=== PATIENT | male | born 1955 | race Asian ===

== ENCOUNTER 2018-09-14 00:22 | Inpatient (IN) | payer MEDICAID ==
[~2018-09-14] VITALS: Ht 165.1 cm; Wt 58.1 kg
--- NOTE | 2018-09-14 00:45 | NUR ---
PATIENT BIB RA FROM HOME FOR C/O CP AFTER HIS AICD ON LEFT CHEST WALL SHOCK HIM TWICE PRIOR TO CALL 911. PATIENT SHORTLY C/O NON RADIATING CP AFTER BEING SHOCK. WHILE PATIENT WAS BEING TRANSPORTED TO ER BY RESC[facility], PATIENT WAS SHOCK BY HIS AICD DUE RAPID AFIB WITH RVR. PATIENT UPON ARRIVAL A/OX3,DENIES SOB. ST WITH RATE OF 112 ON MONITOR. HAS PERMA CATH ON LEFT CHEST WALL. HAD 300ML OF NS ON THE FIELD DUE TO BP 90/60 ON THE FIELD.
[2018-09-14 01:16] LABS: CREATININE 3.4 mg/dL (0.6-1.3); POTASSIUM 4.9 mmol/L (3.5-5.1)
[2018-09-14 01:17] LABS: BASOPHILS # (AUTO) 0.1 K/uL (0.0-8.0); BASOPHILS % (AUTO) 1.7 % (0.0-2.0); EOSINOPHILS # (AUTO) 0.3 K/uL (0.0-0.7); EOSINOPHILS % (AUTO) 5.1 % (0.0-7.0); HEMATOCRIT 28.8 % (36.7-47.1); HEMOGLOBIN 9.2 g/dL (12.5-16.3); LYMPHOCYTES # (AUTO) 1.4 K/uL (20.0-40.0); LYMPHOCYTES % (AUTO) 24.4 % (20.5-51.5); MEAN CORPUSCULAR HEMOGLOBIN 28.7 uug (23.8-33.4); MEAN CORPUSCULAR HGB CONC 32 g/dL (32.5-36.3); MONOCYTES # (AUTO) 0.7 K/uL (2.0-10.0); MONOCYTES % (AUTO) 11.6 % (0.0-11.0); NEUTROPHILS # (AUTO) 3.3 K/uL (1.8-8.9); NEUTROPHILS % (AUTO) 57.2 % (38.5-71.5); PLATELET COUNT (AUTO) 128 K/uL (152-348); WHITE BLOOD COUNT (AUTO) 5.7 K/uL (3.6-10.2)
[2018-09-14 01:29] LABS: BILIRUBIN,DIRECT 0.4 mg/dL (0.0-0.2); BILIRUBIN,TOTAL 1.9 mg/dL (0.2-1.0)
[2018-09-14] MEDS ORDERED: ASPIRIN 325 MG TABLET ONE (01:42)
[2018-09-14] MEDS ORDERED: ASPIRIN 325 MG TABLET PO ONE (01:45)
[2018-09-14] MEDS ORDERED: MAGNESIUM SULFATE 1 GM in IV DEXTROSE 5% 50 ML IV ONE (01:45)
--- NOTE | 2018-09-14 01:45 | NUR ---
PATIENT SLEEPING ON GURNY WITH NO DISTRESS NOTED
[2018-09-14] MEDS ORDERED: MAGNESIUM SULFATE/D5W 100 ML ONE (01:51)
[2018-09-14] MEDS ORDERED: MAGNESIUM HYDROXIDE 30 ML LIQUID UDC PO PRN (02:15)
[2018-09-14] MEDS ORDERED: ACETAMINOPHEN 325 MG TABLET PO PRN (02:15)
[2018-09-14] MEDS ORDERED: Z GUARD REMEDY PASTE 57 GM TUBE TOP PRN (02:15)
[2018-09-14] MEDS ORDERED: ONDANSETRON 4 MG/2 ML VIAL IV PRN (02:15)
--- NOTE | 2018-09-14 02:55 | NUR ---
TRANSFERED TO 3RD FLOOR TELE VIA [facility]DR[facility]
--- NOTE | 2018-09-14 03:00 | NUR ---
received patient via [facility]. a/o x4. no signs of acute distress at this time. v/s stable with exception of HR tachycardic. safety and comfort measures provided. ID band on. IV patent. belonging list completed. will continue and complete admissions process once patient is rested per patient request.
[2018-09-14 03:11] VITALS: BP 102/64
[2018-09-14] MEDS: HYDROCODONE/APAP 5-325MG TABLET PO PRN (03:55)
--- NOTE | 2018-09-14 03:55 | NUR ---
c/o of pain. administered [place]. tolerated well.
[2018-09-14 04:00] VITALS: BP 98/63
[2018-09-14] MEDS ORDERED: MAGNESIUM SULFATE/D5W 100 ML IV SCH (07:00)
[2018-09-14] MEDS: CARVEDILOL 6.25 MG TABLET PO SCH ×2 (08:00→17:48)
--- NOTE | 2018-09-14 08:01 | NUR ---
Awake, alert, oriented x 4, generally weak, not in distress.
[2018-09-14] MEDS: CLOPIDOGREL 75 MG TABLET PO SCH (09:11)
[2018-09-14] MEDS: ASPIRIN 81 MG TAB.CHEW PO SCH (09:11)
--- NOTE | 2018-09-14 09:46 | NUR ---
AICD interrogation done, tech spoke with Dr. Suggs, adjustment done accordingly
[2018-09-14 11:39] VITALS: BP 96/63
--- NOTE | 2018-09-14 15:00 | NUR ---
Followed up HD schedule for today. will come by 1999
[2018-09-14 16:00] VITALS: BP 108/70
--- NOTE | 2018-09-14 18:45 | NUR ---
Comfortable, not in distress. Tele SR 87
--- NOTE | 2018-09-14 19:30 | NUR ---
received patient lying in bed. a/o x3. no signs of acute distress. Sinus Rhythm on monitor. comfort and safety measures provided. will continue plan of care.
--- NOTE | 2018-09-14 20:15 | NUR ---
attempted to call brother Vijay with the phone number given to me from morning nurse for medication reconciliation. I was not able to get a hold of anyone and there was no voicemail to leave.
[2018-09-14] MEDS: ATORVASTATIN 40 MG TABLET PO SCH (20:51)
[2018-09-14] MEDS ORDERED: ALTEPLASE 100 MG VIAL IV ONE (21:15)
[2018-09-14] MEDS ORDERED: ALTEPLASE 2 MG VIAL XX ONE ×2 (21:30)
--- NOTE | 2018-09-14 21:50 | NUR ---
Consent for dialysis signed and placed in chart. Dialysis nurse reported to charge nurse and me that patients Perma Cath line was not working and dialysis was not able to be completed today. Order placed for Alteplase 4mg. patient received alteplase by dialysis nurse and scanned by me. dialysis nurse will report back tomorrow to re-attempt to dialyze patient if line is open.
[2018-09-15 00:26] VITALS: BP 107/61
[2018-09-15] MEDS: HYDROCODONE/APAP 5-325MG TABLET PO PRN (04:09)
--- NOTE | 2018-09-15 04:09 | NUR ---
c/o of pain. [place] administered. tolerated well.
[2018-09-15 05:08] VITALS: BP 104/58
--- NOTE | 2018-09-15 05:49 | NUR ---
patient slept intermittently. a/ox3. no signs of acute distress. normal sinus rhythm on monitor. safety and comfort measures provided. will endorse care accordingly to morning nurse.
[2018-09-15 06:40] LABS: BASOPHILS # (AUTO) 0.1 K/uL (0.0-8.0); BASOPHILS % (AUTO) 2.3 % (0.0-2.0); EOSINOPHILS # (AUTO) 0.5 K/uL (0.0-0.7); HEMATOCRIT 27.2 % (36.7-47.1); HEMOGLOBIN 8.8 g/dL (12.5-16.3); LYMPHOCYTES # (AUTO) 1.2 K/uL (20.0-40.0); MEAN CORPUSCULAR HEMOGLOBIN 29.1 uug (23.8-33.4); MEAN CORPUSCULAR HGB CONC 32 g/dL (32.5-36.3); MEAN CORPUSCULAR VOLUME 90.2 fL (73.0-96.2); MONOCYTES # (AUTO) 0.6 K/uL (2.0-10.0); MONOCYTES % (AUTO) 11.4 % (0.0-11.0); NEUTROPHILS # (AUTO) 3.1 K/uL (1.8-8.9); NEUTROPHILS % (AUTO) 55.3 % (38.5-71.5); PLATELET COUNT (AUTO) 132 K/uL (152-348); RED BLOOD CELL COUNT(AUTO) 3.02 MIL/uL (4.06-5.63); WHITE BLOOD COUNT (AUTO) 5.5 K/uL (3.6-10.2)
[2018-09-15 07:03] LABS: CREATININE 5.9 mg/dL (0.6-1.3); MAGNESIUM 2.3 mg/dL (1.8-2.4); PHOSPHOROUS 4.9 mg/dL (2.5-4.9)
--- NOTE | 2018-09-15 07:25 | NUR ---
RECEIVED AWAKE ALERT AND ORIENTED DENIES PAIN OR DISCOMFORTS AT THIS TIME ON ROOM AIR WITH NO SHORTNESS OF BREATH AT THIS TIME PERMA CATH REMAIN INTACT WITH NO BLEEDING AT THIS TIME DENIES CHEST PAIN TELE WITH SR WITH OCCASSIONAL PVS CALL LIGHTS AND PERSONAL BELONGINGS ARE WITHIN EWASY REACH MADE COMFORTABLE AND WILL CONTINUE TO OBSERVE.
[2018-09-15] MEDS: CLOPIDOGREL 75 MG TABLET PO SCH (08:38)
[2018-09-15] MEDS: ASPIRIN 81 MG TAB.CHEW PO SCH (08:38)
[2018-09-15] MEDS: CARVEDILOL 6.25 MG TABLET PO SCH ×2 (08:39→17:20)
[2018-09-15 11:08] VITALS: BP 111/66
--- NOTE | 2018-09-15 11:30 | NUR ---
PATIENT SEEN AND EXAMINED BY DR CALI WITH NEW ORDERS AND NOTED.
--- NOTE | 2018-09-15 14:30 | NUR ---
DIALYSIS STARTED ORDERED THROUGH HIS RIGHT UPPER CHEST PERMA CATH AND IS TOLERATING WELL
[2018-09-15 15:05] VITALS: BP 102/54
[2018-09-15 15:14] VITALS: BP 105/54
--- NOTE | 2018-09-15 17:01 | NUR ---
DIALYSIS COMPETED AND 500 ML OUT TOLERATED WELL
--- NOTE | 2018-09-15 19:15 | NUR ---
Received patient in bed, Awake and verbally Responsive. No signs of Distress noted, Denies Chest Pain. Will continue with Plan of care.
[2018-09-15 20:19] VITALS: BP 108/59
[2018-09-15] MEDS: ATORVASTATIN 40 MG TABLET PO SCH (20:30)
[2018-09-16 00:34] VITALS: BP 116/59
[2018-09-16] MEDS: HYDROCODONE/APAP 5-325MG TABLET PO PRN (02:09)
[2018-09-16 05:07] VITALS: BP 115/59
[2018-09-16 05:48] LABS: BASOPHILS # (AUTO) 0.1 K/uL (0.0-8.0); BASOPHILS % (AUTO) 2.3 % (0.0-2.0); EOSINOPHILS # (AUTO) 0.6 K/uL (0.0-0.7); EOSINOPHILS % (AUTO) 12.8 % (0.0-7.0); HEMATOCRIT 26.9 % (36.7-47.1); HEMOGLOBIN 8.7 g/dL (12.5-16.3); LYMPHOCYTES # (AUTO) 1.2 K/uL (20.0-40.0); LYMPHOCYTES % (AUTO) 25.1 % (20.5-51.5); MEAN CORPUSCULAR HEMOGLOBIN 29.1 uug (23.8-33.4); MEAN CORPUSCULAR HGB CONC 32 g/dL (32.5-36.3); MEAN CORPUSCULAR VOLUME 90.3 fL (73.0-96.2); MONOCYTES # (AUTO) 0.6 K/uL (2.0-10.0); MONOCYTES % (AUTO) 12.1 % (0.0-11.0); NEUTROPHILS # (AUTO) 2.2 K/uL (1.8-8.9); NEUTROPHILS % (AUTO) 47.7 % (38.5-71.5); PLATELET COUNT (AUTO) 116 K/uL (152-348); RED BLOOD CELL COUNT(AUTO) 2.97 MIL/uL (4.06-5.63); WHITE BLOOD COUNT (AUTO) 4.6 K/uL (3.6-10.2)
--- NOTE | 2018-09-16 06:04 | NUR ---
Patient in bed awake and verbally responsive. No signs of Distress noted. Pain Medication [place] 5/325 1 tab given for mild Chest Pain, effective after 1 hour. No complain of Pain/discomfort at this time. All due medication given as ordered. Will endorse care to Oncoming Shift..
--- NOTE | 2018-09-16 07:33 | NUR ---
IN BED ASLEEP AND EASILY AROUSABLE ON ROUNDS ALERT AND ORIENTED WHEN AWAKE DENIES PAIN OR DISCOMFORTS LT CHEST PERMA CATH REMAIN INTACT WITH NO S/S OF BLEEDING AT THIS TIME ON ROOM AIR WITH NO SOB CALL LIGHTS AND PERSONAL BELONGINGS PLACED WITHIN EASY REACH WILL CONTINUE TO OBSERVE AND PROVIDE SAFE AND THERAPEUTIC ENVIRONMENT AT ALL TIMES
[2018-09-16] MEDS: ASPIRIN 81 MG TAB.CHEW PO SCH (08:32)
[2018-09-16] MEDS: CLOPIDOGREL 75 MG TABLET PO SCH (08:32)
[2018-09-16] MEDS: CARVEDILOL 6.25 MG TABLET PO SCH ×2 (08:33→17:09)
[2018-09-16 09:05] LABS: CREATININE 5.1 mg/dL (0.6-1.3); MAGNESIUM 2.2 mg/dL (1.8-2.4); PHOSPHOROUS 4.4 mg/dL (2.5-4.9); POTASSIUM 4.8 mmol/L (3.5-5.1)
[2018-09-16 11:12] VITALS: BP 108/58
--- NOTE | 2018-09-16 13:00 | NUR ---
DR RADHA GAMBOA HERE TO SEE PATIENT WITH NO NEW ORDERS AT THIS TIME
--- NOTE | 2018-09-16 13:15 | NUR ---
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
--- NOTE | 2018-09-16 13:20 | NUR ---
DR CONTRERAS HERE TO SEE PATIENT WITH ORDER TO D/C TELEMETRY AND NOTED.
[2018-09-16 15:20] VITALS: BP 99/56
[2018-09-16 15:26] VITALS: BP 112/69
--- NOTE | 2018-09-16 17:52 | NUR ---
SPOKE WITH PATIENT WE HAVE BEEN UNABLE TO GET HIS HOME MEDICATIONS LIST PATIENT GAVE ME THE PHONE NUMBER OF HIS BROTHER [phone] CALLED THIS NUMBER AND LEFT A MESSAGE IN HIS VOICE MAIL.PATIENT STATED THAT HE DOES NOT REMEMBER THE NAMES OF HIS MEDICATIONS AND DOES NOT REMEMBER THE NAME OF HIS PHARMACY AT THIS TIME.STATED HIS BROTHER MIGHT COME IN TOMORROW.
--- NOTE | 2018-09-16 19:52 | NUR ---
PATIENT RECEIVED SLEEPING IN BED, RESTING COMFORTABLY. NO SIGNS OR SYMPTOMS OF ACUTE DISTRESS OR DISCOMFORT NOTED OR OBSERVED. ALL SAFETY AND ALL PRECAUTION MEASURES ARE IN PLACE. CALL LIGHT AND PERSONAL ITEMS ARE WITHIN REACH AT ALL TIMES. WILL CONTINUE TO MONITOR.
[2018-09-16 20:04] VITALS: BP 116/67
[2018-09-16] MEDS: ATORVASTATIN 40 MG TABLET PO SCH (20:26)
[2018-09-17 05:17] VITALS: BP 128/73
--- NOTE | 2018-09-17 06:00 | NUR ---
PATIENT SLEPT COMFORTABLY THROUGHOUT NIGHT WITH NO COMPLAINTS OF PAIN OR DISCOMFORT VERBALIZED. PATIENT DID NOT URINATE OR HAVE A BOWEL MOVEMENT THIS SHIFT. ALL SAFETY AND FALL PRECAUTION MEASURES REMAIN IN PLACE. CALL LIGHT AND PERSONAL ITEMS ARE WITHIN REACH AT ALL TIMES.
--- NOTE | 2018-09-17 07:25 | NUR ---
RECEIVED PATIENT IN BED ASLEEP EASILY AROUSABLE ON ROUNDS DENIES PAIN OR DISCOMFORTS PERMA CATH LEFT UPPER CHEST REMAIN INTACT WITH NO BLEEDING AT THIS TIME CALL LIGHTS AND PERSONAL BELONGINGS ARE WITHIN EASY REACH AT THIS TIME WILL CONTINUE TO OBSERVE.
[2018-09-17] MEDS: ASPIRIN 81 MG TAB.CHEW PO SCH (08:29)
[2018-09-17] MEDS: CLOPIDOGREL 75 MG TABLET PO SCH (08:29)
[2018-09-17] MEDS: CARVEDILOL 6.25 MG TABLET PO SCH (08:30)
[2018-09-17 12:00] VITALS: BP 105/68
--- NOTE | 2018-09-17 13:30 | NUR ---
DISCHARGE ORDER RECEIVED AND PER THE [facility] PATIENT WILL BE PICKED UP BY [facility] PATIENT AWARE AND AGREES
[2018-09-17] MEDS ORDERED: CLOP75TA15 PO (13:42)
[2018-09-17] MEDS ORDERED: ASPI81TA31 PO (13:42)
[2018-09-17] MEDS ORDERED: ATOR40TA PO (13:42)
[2018-09-17 16:00] VITALS: BP 110/66
--- NOTE | 2018-09-17 16:14 | NUR ---
PATIENT DISCHARGED PICKED UP BY THE [facility] WITH DISCHARGE INSTRUCTIONS AND PRESCRIPTIONS AND PATIENT INSTRUCTED THAT HE HAS AN APPOINTMENT AT THE [facility] TOMORROW AT 0800 BUT HE HAS TO BE THERE AT 0730 AND HIS BROTHER KENDALL IS AWARE TO TRANSPORT HIM THERE AND PATIENT EXPRESSED UNDERSTANDING.PERMA CATH LEFT CHEST IS INTACT AT THIS TIME.
[2018-09-18 08:06] LABS: HEPATITIS B SURFACE AB Reactive (.); HEPATITIS B SURFACE AG Negative (Negative)
== END 2018-09-17 16:15 | disposition home or self-care (01) | DRG 206 ==
LOC: ER 00:24 → TELE3 02:43 → MEDSURG3 09-16 13:20
PROVIDERS: ADMIT Internal Medicine; ATTEND Nurse Practitioner Acute Care
PROC: 5A1D70Z Performance of Urinary Filtration, Intermittent, Less than 6 Hours Per Day (ICD-10-PCS; principal; 2018-09-14)
PROC: 4B02XTZ Measurement of Cardiac Defibrillator, External Approach (ICD-10-PCS; principal; 2018-09-14)
DX: T82.897A Other specified complication of cardiac prosthetic devices, implants and grafts, initial encounter (principal); I21.A1 Myocardial infarction type 2; I50.23 Acute on chronic systolic (congestive) heart failure; T86.12 Kidney transplant failure; N18.6 End stage renal disease; N25.0 Renal osteodystrophy; K92.2 Gastrointestinal hemorrhage, unspecified; I48.0 Paroxysmal atrial fibrillation; Y71.8 Miscellaneous cardiovascular devices associated with adverse incidents, not elsewhere classified; Y92.019 Unspecified place in single-family (private) house as the place of occurrence of the external cause; Z95.810 Presence of automatic (implantable) cardiac defibrillator; Z99.2 Dependence on renal dialysis; I25.5 Ischemic cardiomyopathy; I25.10 Atherosclerotic heart disease of native coronary artery without angina pectoris; Z95.5 Presence of coronary angioplasty implant and graft; I70.0 Atherosclerosis of aorta; D63.1 Anemia in chronic kidney disease
CPT/HCPCS: 36415; 70030-TC; 71045; 83735; 84100; 85025; 85730; 86704; 86706; 87340; 90937; 93005; 93307; A4663; G0378; J2997; J3475